=== PATIENT | male | born 1995 | race Caucasian/White ===

== ENCOUNTER 2020-05-11 21:52 | Emergency (ER) | payer OTHER, SELFPAY ==
[2020-05-11 21:55] VITALS: BP 122/68; PULSE 95; RESP 22; TEMP 37.2; O2SAT 100; BMI 29.9
--- NOTE | 2020-05-11 22:09 | XR_ITS ---
PROCEDURE: XR CHEST PORTABLE CLINICAL HISTORY: soa Shortness of breath COMPARISON: No exams were available for comparison FINDINGS: The cardiomediastinal silhouette and pulmonary vascularity are within normal limits. The lungs are clear without infiltrates, suspicious nodules, or pleural effusions. No acute bony abnormalities. IMPRESSION: No acute findings. Dictated by: Corey Bernard MD 05/12/2020 05:21 Corey Bernard MD in [facility] 05/12/2020 05:21
[2020-05-11 22:22] LABS: Chloride 102 mmol/L (98-107); Potassium 3.7 mmoL/L (3.5-5.1); Sodium 138 mmol/L (136-145)
[2020-05-11 22:23] LABS: Basophils % 0.4 % (0.1-2.0); Eosinophils % 0.2 % (0.1-12.0); Hematocrit 46.7 % (42.0-52.0); Hemoglobin 16.2 g/dL (14.1-18.0); Lymphocytes # 0.5 K/mm3 (0.7-4.5); Lymphocytes % 6.4 % (10-50); Mean Corpuscular HGB Conc 34.7 g/dL (31.8-35.4); Mean Corpuscular Hemoglobin 30.1 pg (27.0-31.2); Mean Corpuscular Volume 86.7 fl (80-94); Mean Platelet Volume 8.1 fl (7.4-10.4); Monocytes # 0.3 K/mm3 (0.1-1.0); Monocytes % 4.3 % (1.7-9.3); Neutrophils % 88.7 % (37.0-80.0); Platelet Count 146 K/mm3 (142-424); Red Blood Count 5.39 M/mm3 (4.60-6.20); Red Cell Distribution Width 13.7 % (11.5-17.5); White Blood Count 7.9 K/mm3 (4.8-10.8)
[2020-05-11 22:24] LABS: Blood Urea Nitrogen 14 mg/dl (9-20); Creatinine Clearance Estimated 168 mL/min (50-200); Estimated Glomerular Filt Rate 103 ml/min (>60); GFR (African American) 124 ML/MIN (>60)
[2020-05-11 22:25] LABS: Anion Gap 14.7 mEq/L (5-15); Calcium 9.7 mg/dl (8.4-10.2); Carbon Dioxide 25 mmol/L (22.0-30.0); Glucose 136 mg/dl (74-100); MANUAL DIFFERENTIAL MANUAL DIFFERENTIAL (MANUAL DIFF)
--- NOTE | 2020-05-11 22:43 | [facility].EDGENADL ---
ED Disposition Clinical Impression: Viral infection Disposition: Home, Self-Care Condition on Discharge: Good Additional Instructions: Return to the emergency department for nausea vomiting headache abdominal pain chest pain neck stiffness or any other concerns within the next 8 hours otherwise follow-up with your primary care physician and drink a lot of fluids over the next few days. Referrals: Michael Chandra [Primary Care Provider] - - Critical Care Critical Care Time: No Attestation: On 05/11/20, the high probability of a clinically significant, sudden or life threatening deterioration of the following system(s) required my full and direct attention, intervention and personal management. The time I documented below is in addition to time spent performing reported procedures but includes the following listed in this critical care notation. Medical Decision Making - Medical Records Medical records reviewed: Yes: I reviewed the patient's medical records. - Vince Inquiry Pt receiving controlled substance: No Vital Signs: 05/11/20 21:55 05/11/20 22:51 Temperature 99.0 F Temperature Source Oral Pulse Rate [Left Radial] 95 H 83 Respiratory Rate 22 18 Blood Pressure [Right Arm] 122/68 114/71 Blood Pressure Mean [Right Arm] 86 85 Blood Pressure Source [Right Arm] Automatic Cuff Automatic Cuff Blood Pressure Position [Right Arm] Supine Supine 02 Sat by Pulse Oximetry 100 100 Oxygen Delivery Method Room Air Room Air - Lab Data Lab Results 05/11/20 22:00: WBC 7.9, RBC 5.39, Hgb 16.2, Hct 46.7, MCV 86.7, MCH 30.1, MCHC 34.7, RDW 13.7, Plt Count 146, MPV 8.1, Neut % (Auto) 88.7 H, Lymph % (Auto) 6.4 L, [place] % (Auto) 4.3, Eos % (Auto) 0.2, Baso % (Auto) 0.4, Neut # (Auto) 7.0, Lymph # (Auto) 0.5 L, [place] # (Auto) 0.3, Eos # (Auto) 0.0, Baso # (Auto) 0.0 05/11/20 22:00: Sodium 138, Potassium 3.7, Chloride 102, Carbon Dioxide 25, Anion Gap 14.7, BUN 14, Creatinine 0.90, Estimated Creat Clear 168, Estimated GFR 103, Est GFR ( Amer) 124, Glucose 136 H, Calcium 9.7 Result diagrams: 05/11/20 22:00 05/11/20 22:00 Orders (Tests/Meds): ED MEDICATIONS Generic Name Dose Route Start Last Admin Trade Name Freq PRN Reason Stop Dose Admin Sodium Chloride 1,000 mls @ 999 mls/hr 05/11/20 22:15 05/11/20 22:12 Sod Chlor 0.9% 1000ml Bag IV 05/11/20 23:15 999 mls/hr .[id number] FRANCK Administration Discontinued Medications Generic Name Dose Route Start Last Admin Trade Name Freq PRN Reason Stop Dose Admin Acetaminophen 1,000 mg 05/11/20 22:52 Acetaminophen 500mg Tab PO 05/11/20 22:53 ONCE ONE ORDERS Category Date Time Status CXR --portable [XR chest portable] Stat Exams 05/11/20 22:09 Taken Complete Blood Count Auto Diff Stat Lab 05/11/20 22:00 Results Medical Decision Narrative: 24-year-old male presents with full body aches and chills. He is awake alert no acute distress able to speak in full sentences. He has no meningismus or concern for meningitis. No rash or concern for Tsang-Fausto syndrome or other emergent dermatological issues. No chest or abdominal pain. Vital signs are otherwise normal chest x-ray obtained and labs which were unremarkable. Given IV fluids and he is feeling better. On repeat exam he was feeling much better, given strict return precautions for any symptoms that are worsening or any concerns but otherwise recommended follow-up drink a lot of fluids. General Adult HPI - General Chief complaint: Upper Respiratory Infection Stated complaint: chills, Bones are hurting Time Seen by Provider: 05/11/20 22:00 Mode of Arrival: Ambulatory Limitations: No Limitations Description of Symptoms (Recalled from ER Triage Doc. by RN): Pt reports chills, aches, pain mid-sterum with inspiration that started 3 hours ago while sitting at home. Denies recent illness, cough, congestion, N/V/D. - History of Present Illness HPI narrative: 24-year-old male presents
[2020-05-11 22:51] VITALS: BP 114/71; PULSE 83; RESP 18; O2SAT 100
[2020-05-11 23:04] VITALS: BP 122/64; PULSE 78; RESP 16; TEMP 37.2; O2SAT 99
[2020-05-11 23:12] LABS: Lymphocytes % 7 % (10-50); Monocytes % 5 % (2-9); Neutrophils % 88 % (42-76); Platelet Estimate Normal; RBC Morphology Normal; Total Cells Counted 100
== END 2020-05-11 23:06 | disposition home or self-care (01) ==
PROVIDERS: Emergency Provider Emergency Medicine; PCP Pediatrics
DX: B34.9 Viral infection, unspecified (principal); J06.9 Acute upper respiratory infection, unspecified
CPT/HCPCS: 71045; 80048; 85007; 85025; 96365; 99283